=== PATIENT | female | born 1950 | race Caucasian/White ===

== ENCOUNTER → 2017-02-04 | Outpatient (CLI) | payer OTHER, BC | LOC: CIMAGING 15:09 | PROVIDERS: ATTEND Family Medicine | DX: M25.552 Pain in left hip (principal); Z96.653 Presence of artificial knee joint, bilateral | CPT/HCPCS: 73502-PO; 73562-PO ==

== ENCOUNTER → 2017-02-08 | Outpatient (CLI) | payer OTHER, BC | LOC: FIMAGING 17:25 | PROVIDERS: ATTEND Family Medicine | DX: S80.01XA Contusion of right knee, initial encounter (principal) ==